=== PATIENT | male | born 1945 | race African-American/Black ===

== ENCOUNTER 2016-10-29 10:59 | Inpatient (IN) | payer OTHER ==
[~2016-10-29] VITALS: Ht 182.9 cm; Wt 70.1 kg
[2016-10-29 16:00] VITALS: BP 139/79
[2016-10-29] MEDS ORDERED: NICOTINE PATCH1 EAC2 TD (19:28)
[2016-10-29] MEDS ORDERED: PRAVASTATIN SOD80 MG PO ×2 (19:29)
[2016-10-29] MEDS ORDERED: ASPIRIN325 MG PO (19:30)
[2016-10-29] MEDS ORDERED: PEPCID20 MG PO (19:30)
[2016-10-29] MEDS ORDERED: LOVENOX40 MG/0.4 SC (19:31)
[2016-10-29] MEDS ORDERED: LISINOPRIL5 MG PO (19:32)
[2016-10-29] MEDS ORDERED: TYLENOL REGULA325 MG PO (19:33)
[2016-10-29] MEDS ORDERED: CYANOCOBALAM1000 MCG PO (19:33)
[2016-10-30 00:16] VITALS: BP 150/84
[2016-10-30 06:22] VITALS: BP 141/79
[2016-10-30 17:48] VITALS: BP 107/56
[2016-10-30 20:58] VITALS: BP 133/89
[2016-10-31 06:17] VITALS: BP 129/78
[2016-10-31 15:58] VITALS: BP 130/76
[2016-11-01 05:27] VITALS: BP 108/68
[2016-11-01 15:00] VITALS: BP 126/58
[2016-11-01 21:08] LABS: HEMATOCRIT 46.4 % (38.0-50.0); MCH 31.9 PG (29.0-34.0); MCHC 32.5 G/DL (30.0-36.0); MCV 97.9 FL (86-99); MEAN PLAT.VOLUME 10.5 uM^3 (9.0-12.4); PLATELET COUNT 206 K/uL (156-360); RBC DIS.WIDTH-CV 12.6 % (11.8-14.6); RBC DIS.WIDTH-SD 45.6 % (39-53); RED BLOOD COUNT 4.74 M/uL (4.00-5.50); WHITE BLOOD COUNT 8.6 K/uL (4.1-10.2)
[2016-11-01 21:21] LABS: ANION GAP 8 MEQ/L (2-14); CHLORIDE 103 MEQ/L (99-109); GFR ESTIMATE (CALCULATED) > 59 mL/min/; GLUCOSE 128 mg/dL (70-99); POTASSIUM 4.5 MEQ/L (3.7-5.4); SAMPLE HEMOLYSIS CHECK 0; SAMPLE ICTERIC CHECK 0; SAMPLE LIPEMIA CHECK 0; SODIUM 138 MEQ/L (136-147); UREA NITROGEN (BUN) 21 mg/dL (9-23)
[2016-11-02 05:54] VITALS: BP 101/61
[2016-11-02 07:56] LABS: ADD MIUA? YES; BILIRUBIN NEGATIVE; BLOOD NEGATIVE; COLOR YELLOW ((YELLOW)); GLUCOSE (STRIP) NEGATIVE; KETONES NEGATIVE; LEUKOCYTES NEGATIVE; NITRITE NEGATIVE; PROTEIN (STRIP) 30; SPECIFIC GRAVITY 1.017 (1.000-1.030); UROBILINOGEN 0.2 MG/DL (0.2-1.0)
[2016-11-02 09:20] LABS: BACTERIA NONE SEEN /HPF; EPITHELIAL CELLS RARE /HPF; MUCUS 2+ /LPF; RED BLOOD CELLS 0-5 /HPF (0-5); WHITE BLOOD CELLS 15-20 /HPF (0-5)
[2016-11-02 14:40] VITALS: BP 119/69
[2016-11-03 06:11] VITALS: BP 100/56
[2016-11-03 15:05] VITALS: BP 125/73
[2016-11-04 06:32] VITALS: BP 130/79
[2016-11-04 15:39] VITALS: BP 107/66
[2016-11-05 06:19] VITALS: BP 112/64
[2016-11-05 14:38] VITALS: BP 106/65
[2016-11-05 19:39] LABS: HEMATOCRIT 46.3 % (38.0-50.0); MCH 31.4 PG (29.0-34.0); MCHC 31.5 G/DL (30.0-36.0); MCV 99.6 FL (86-99); PLATELET COUNT 218 K/uL (156-360); RBC DIS.WIDTH-CV 12.6 % (11.8-14.6); RBC DIS.WIDTH-SD 45.9 % (39-53); RED BLOOD COUNT 4.65 M/uL (4.00-5.50); WHITE BLOOD COUNT 8.3 K/uL (4.1-10.2)
[2016-11-05 23:43] LABS: CHLORIDE 106 mEq/L (99-109); POTASSIUM 4.5 mEq/L (3.7-5.4); SODIUM 139 mEq/L (136-147)
[2016-11-05 23:46] LABS: GLUCOSE 122 mg/dL (70-99)
[2016-11-05 23:47] LABS: ANION GAP 9 MEQ/L (2-14)
[2016-11-05 23:48] LABS: TOTAL BILIRUBIN 0.5 mg/dL (0.0-1.0)
[2016-11-05 23:49] LABS: ALKALINE PHOSPHATASE 59 IU/L (3-129); GFR ESTIMATE (CALCULATED) > 59 mL/min/
[2016-11-05 23:50] LABS: UREA NITROGEN (BUN) 31 mg/dL (9-23)
[2016-11-06 05:52] VITALS: BP 117/72
[2016-11-06 15:28] VITALS: BP 86/52
[2016-11-06 18:49] VITALS: BP 104/67
[2016-11-06 20:11] LABS: ANION GAP 7 MEQ/L (2-14); CHLORIDE 103 MEQ/L (99-109); POTASSIUM 4.5 MEQ/L (3.7-5.4); SAMPLE HEMOLYSIS CHECK 0; SAMPLE ICTERIC CHECK 0; SAMPLE LIPEMIA CHECK 0; SODIUM 138 MEQ/L (136-147); TOTAL BILIRUBIN 0.4 MG/DL (0.0-1.0)
[2016-11-06 20:20] LABS: ALKALINE PHOSPHATASE 56 IU/L (3-129); GFR ESTIMATE (CALCULATED) 51 mL/min/; GLUCOSE 108 mg/dL (70-99); UREA NITROGEN (BUN) 34 mg/dL (9-23)
[2016-11-07 05:15] VITALS: BP 103/62
[2016-11-07 06:34] LABS: ANION GAP 7 MEQ/L (2-14); CHLORIDE 103 MEQ/L (99-109); GFR ESTIMATE (CALCULATED) > 59 mL/min/; GLUCOSE 93 mg/dL (70-99); POTASSIUM 4.6 MEQ/L (3.7-5.4); SAMPLE HEMOLYSIS CHECK 0; SAMPLE ICTERIC CHECK 0; SAMPLE LIPEMIA CHECK 0; SODIUM 140 MEQ/L (136-147); UREA NITROGEN (BUN) 36 mg/dL (9-23)
[2016-11-07 07:02] VITALS: BP 103/62
[2016-11-07 15:28] VITALS: BP 117/74
[2016-11-07 19:40] VITALS: BP 112/63
[2016-11-08 05:23] VITALS: BP 137/86
[2016-11-08 06:13] LABS: HEMATOCRIT 45.8 % (38.0-50.0); MCH 31.8 PG (29.0-34.0); MCHC 32.3 G/DL (30.0-36.0); MCV 98.3 FL (86-99); PLATELET COUNT 233 K/uL (156-360); RBC DIS.WIDTH-CV 12.2 % (11.8-14.6); RED BLOOD COUNT 4.66 M/uL (4.00-5.50); WHITE BLOOD COUNT 8.9 K/uL (4.1-10.2)
[2016-11-08 06:50] LABS: ANION GAP 10 MEQ/L (2-14); CHLORIDE 104 MEQ/L (99-109); GFR ESTIMATE (CALCULATED) > 59 mL/min/; GLUCOSE 103 mg/dL (70-99); POTASSIUM 4.8 MEQ/L (3.7-5.4); SAMPLE HEMOLYSIS CHECK 0; SAMPLE ICTERIC CHECK 0; SAMPLE LIPEMIA CHECK 0; SODIUM 141 MEQ/L (136-147); UREA NITROGEN (BUN) 32 mg/dL (9-23)
[2016-11-08 16:05] VITALS: BP 130/76
[2016-11-09 05:30] VITALS: BP 120/78
[2016-11-09 05:46] LABS: BASOPHIL COUNT 0.1 K/uL (0-0.1); EOSINOPHIL (%) 2.5 % (0-5); EOSINOPHIL COUNT 0.2 K/uL (0-0.3); HEMATOCRIT 44.2 % (38.0-50.0); IMMATURE GRANULOCYTE (%) 0.3 % (0.0-0.7); INSTRUMENT ABS NEUTROPHIL CT 5.2 K/uL; LYMPHOCYTE COUNT 1.6 K/uL (1.0-2.8); MCH 31.8 PG (29.0-34.0); MCHC 31.9 G/DL (30.0-36.0); MCV 99.5 FL (86-99); MEAN PLAT.VOLUME 10.3 uM^3 (9.0-12.4); MONOCYTE (%) 7.6 % (3-12); MONOCYTE COUNT 0.6 K/uL (0-0.8); NEUTROPHIL (%) 68.4 % (45-76); NEUTROPHIL COUNT 5.2 K/uL (1.8-6.4); PLATELET COUNT 212 K/uL (156-360); RBC DIS.WIDTH-CV 12.3 % (11.8-14.6); RBC DIS.WIDTH-SD 45.1 % (39-53); RED BLOOD COUNT 4.44 M/uL (4.00-5.50); WHITE BLOOD COUNT 7.6 K/uL (4.1-10.2)
[2016-11-09 06:13] LABS: ANION GAP 6 MEQ/L (2-14); CHLORIDE 106 MEQ/L (99-109); GFR ESTIMATE (CALCULATED) > 59 mL/min/; GLUCOSE 91 mg/dL (70-99); MAGNESIUM 2.2 mg/dl (1.3-2.7); POTASSIUM 4.5 MEQ/L (3.7-5.4); SAMPLE HEMOLYSIS CHECK 0; SAMPLE ICTERIC CHECK 0; SAMPLE LIPEMIA CHECK 0; SODIUM 141 MEQ/L (136-147); UREA NITROGEN (BUN) 25 mg/dL (9-23)
[2016-11-09 15:34] VITALS: BP 153/84
[2016-11-10 05:04] LABS: HEMATOCRIT 45.1 % (38.0-50.0); MCH 31.6 PG (29.0-34.0); MCHC 31.7 G/DL (30.0-36.0); MCV 99.8 FL (86-99); PLATELET COUNT 231 K/uL (156-360); RBC DIS.WIDTH-SD 44.4 % (39-53); RED BLOOD COUNT 4.52 M/uL (4.00-5.50); WHITE BLOOD COUNT 8.6 K/uL (4.1-10.2)
[2016-11-10 05:12] LABS: CHLORIDE 107 mEq/L (99-109); POTASSIUM 4.4 mEq/L (3.7-5.4); SODIUM 141 mEq/L (136-147)
[2016-11-10 05:14] LABS: GLUCOSE 84 mg/dL (70-99)
[2016-11-10 05:16] LABS: ANION GAP 6 MEQ/L (2-14)
[2016-11-10 05:18] LABS: GFR ESTIMATE (CALCULATED) > 59 mL/min/
[2016-11-10 05:19] LABS: UREA NITROGEN (BUN) 19 mg/dL (9-23)
[2016-11-10 05:26] VITALS: BP 140/80
[2016-11-10 16:38] VITALS: BP 135/79
[2016-11-10] MEDS ORDERED: THERAGRAN1 TABLET PO (17:08)
[2016-11-10] MEDS ORDERED: SENNA PLUS TAB1 EACH PO (17:08)
[2016-11-10] MEDS ORDERED: FOLIC ACID1 MG PO (17:08)
[2016-11-10 19:07] LABS: ADD MIUA? NO; BILIRUBIN NEGATIVE; BLOOD NEGATIVE; COLOR YELLOW ((YELLOW)); GLUCOSE (STRIP) NEGATIVE; KETONES 5; LEUKOCYTES NEGATIVE; NITRITE NEGATIVE; PROTEIN (STRIP) NEGATIVE; UROBILINOGEN 0.2 MG/DL (0.2-1.0)
[2016-11-10] MEDS ORDERED: SERTRALINE HCL50 MG PO (21:33)
[2016-11-11 05:33] VITALS: BP 143/80
[2016-11-11 05:48] LABS: BASOPHIL COUNT 0.1 K/uL (0-0.1); EOSINOPHIL COUNT 0.3 K/uL (0-0.3); HEMATOCRIT 40.1 % (38.0-50.0); IMMATURE GRANULOCYTE (%) 0.3 % (0.0-0.7); INSTRUMENT ABS NEUTROPHIL CT 4.3 K/uL; LYMPHOCYTE COUNT 2.1 K/uL (1.0-2.8); MCH 32.1 PG (29.0-34.0); MCHC 32.9 G/DL (30.0-36.0); MCV 97.6 FL (86-99); MEAN PLAT.VOLUME 9.8 uM^3 (9.0-12.4); MONOCYTE (%) 7.7 % (3-12); MONOCYTE COUNT 0.6 K/uL (0-0.8); NEUTROPHIL COUNT 4.3 K/uL (1.8-6.4); PLATELET COUNT 194 K/uL (156-360); RBC DIS.WIDTH-CV 11.8 % (11.8-14.6); RBC DIS.WIDTH-SD 42.5 % (39-53); RED BLOOD COUNT 4.11 M/uL (4.00-5.50); WHITE BLOOD COUNT 7.3 K/uL (4.1-10.2)
[2016-11-11 06:10] LABS: ANION GAP 7 MEQ/L (2-14); CHLORIDE 106 MEQ/L (99-109); GFR ESTIMATE (CALCULATED) > 59 mL/min/; GLUCOSE 80 mg/dL (70-99); POTASSIUM 3.9 MEQ/L (3.7-5.4); SAMPLE HEMOLYSIS CHECK 0; SAMPLE ICTERIC CHECK 0; SAMPLE LIPEMIA CHECK 0; SODIUM 139 MEQ/L (136-147); UREA NITROGEN (BUN) 15 mg/dL (9-23)
== END 2016-11-11 14:30 | DRG 57 ==
LOC: 3WEST 10:59
PROVIDERS: Family Medicine; Internal Medicine Nephrology; Physical Medicine & Rehabilitation Pain Medicine
PROC: F07M0ZZ Range of Motion and Joint Mobility Treatment of Musculoskeletal System - Whole Body (ICD-10-PCS; principal; 2016-10-29)
DX: I69.320 Aphasia following cerebral infarction (principal); I69.351 Hemiplegia and hemiparesis following cerebral infarction affecting right dominant side; F33.9 Major depressive disorder, recurrent, unspecified; Q21.1 Atrial septal defect; N17.9 Acute kidney failure, unspecified; I95.9 Hypotension, unspecified; E86.0 Dehydration; I12.9 Hypertensive chronic kidney disease with stage 1 through stage 4 chronic kidney disease, or unspecified chronic kidney disease; I69.392 Facial weakness following cerebral infarction; I69.390 Apraxia following cerebral infarction; I69.891 Dysphagia following other cerebrovascular disease; H53.461 Homonymous bilateral field defects, right side; E53.8 Deficiency of other specified B group vitamins; E78.00 Pure hypercholesterolemia, unspecified; K40.90 Unilateral inguinal hernia, without obstruction or gangrene, not specified as recurrent; E78.5 Hyperlipidemia, unspecified; I67.2 Cerebral atherosclerosis; N18.3 Chronic kidney disease, stage 3 (moderate); R41.0 Disorientation, unspecified; F17.210 Nicotine dependence, cigarettes, uncomplicated; Z91.19 Patient's noncompliance with other medical treatment and regimen; R32 Unspecified urinary incontinence; N32.89 Other specified disorders of bladder; D75.89 Other specified diseases of blood and blood-forming organs; K21.9 Gastro-esophageal reflux disease without esophagitis
CPT/HCPCS: 70450; 70551; 74177; 76770; 80048; 80053; 80069; 81003; 83735; 84100; 85025; 85027; 87086; 92507 GN; 92523 GN; 92526 GN; 92610 GN; 95819; 97110 GO; 97112 GO; 97530 GP; 97532 GN; G0283 GO; J1650; J7030